=== PATIENT | male | born 1970 | race Caucasian/White ===

== ENCOUNTER 2019-03-05 08:07 | Emergency (ER) | payer OTHER ==
[~2019-03-05] VITALS: Ht 175.3 cm; Wt 93.0 kg
[2019-03-05] MEDS ORDERED: ZIPSOR25 MG (08:40)
== END 2019-03-05 11:12 | disposition home or self-care (01) ==
LOC: ER 08:07
DX: G89.29 Other chronic pain (principal); M54.5 Low back pain; M51.37 Other intervertebral disc degeneration, lumbosacral region